=== PATIENT | male | born 1950 | race Caucasian/White ===

== ENCOUNTER 2024-07-25 11:25 | Outpatient (REF) | payer MEDICARE, BC, SELFPAY ==
--- NOTE | 2024-07-25 11:00 | PAPNONF_PTH ---
PATIENT: Trey aC LOC: [facility] U#:[id number] AGE/SX: 74/M ROOM: RE07/25/[address]: Tao Morton MD : 1950 BED: DIS: 07/25/2024 SPEC #: [id number] RECD: 07/25/24 18:23 STATUS: ALONZO REQ #: [id number] ANGELIQUE: 07/25/24 11:[address]: Tao Morton DEPT: [facility] Cytology RECD BY: Alondra Clifton ENTERED: 07/25/24 18:25 SP TYPE: GREG DESIR DR: Jean Claude Balderas Tissues: 1 - BODY FLUID CYTO(NOT S/U/N/EM)[facility] Procedures: BODY FLUID CYTO(NOT SPU/UR/NIP/ENDOM)[facility] Comments: [id number] (REFRIGERATED)
== END 2024-07-25 11:26 | disposition home or self-care (01) ==
LOC: LBN 11:25
PROVIDERS: PCP Family Medicine; Visit Provider Otolaryngology
DX: R22.0 Localized swelling, mass and lump, head (principal); G51.0 Bell's palsy; D86.9 Sarcoidosis, unspecified; H61.23 Impacted cerumen, bilateral; H90.2 Conductive hearing loss, unspecified; J31.0 Chronic rhinitis
CPT/HCPCS: 88104

== ENCOUNTER 2024-09-03 01:33 | Outpatient (CLI) | payer MEDICARE, BC, SELFPAY ==
--- NOTE | 2024-09-03 07:30 | DI.MRI_ITS ---
Exam(s) MR BRAIN ORBIT FACE NECK WO/W EXAM: MR BRAIN ORBIT FACE NECK WO/W CLINICAL HISTORY: left lower facial paralysis,cheek mass,sarcoidosis,g51.0 TECHNIQUE: Multiplanar multisequence MRI of the brain was performed. CONTRAST MATERIAL: IV Contrast: 15 mL of Dotarem contrast administered. COMPARISON: No exams were available for comparison FINDINGS: The examination is limited due to patient motion artifact. VENTRICLES AND EXTRA AXIAL SPACES: Normal in size and morphology for the patient's age. HEMORRHAGE: None. CEREBRAL PARENCHYMA: No focus of restricted diffusion to suggest acute infarct. No space-occupying le papo identified. There are areas of hyperintense signal seen in the white matter on the FLAIR and T2 weighted images most consistent with chronic microvascular ischemic disease. MIDLINE SHIFT: None. BRAINSTEM/CEREBELLUM: Normal. CALVARIUM: Normal. ENHANCEMENT: No suspicious enhancement identified. VISUALIZED PARANASAL SINUSES/MASTOIDS: There is mucosal thickening in the maxillary sinuses bilateral ly. No air-fluid levels are present. There is a small mucous retention cyst or polyp in the right s phenoid sinus. AMBLER OF BUCK: Normal flow void. PITUITARY GLAND: Unremarkable. OTHER FINDINGS: Orbits and orbital soft tissues: Within normal limits. Visualized paranasal sinuses: There is mild mucosal thickening seen in the maxillary sinuses and eth moid air cells bilaterally. There is a small fluid level in the right sphenoid sinus. Nasopharynx: Within normal limits. Oropharynx: Within normal limits. Hypopharynx: Within normal limits. Retropharyngeal space: Within normal limits. Parotids/submandibular: Within normal limits. Lymphadenopathy: There is scattered lymph nodes seen along the level one to level three all measuring less than 8 mm in short axis diameter which are physiologic in nature. Bones: Within normal limits for the patient's age. Carotids/Jugular: Within normal limits. Soft tissues: There is a soft tissue mass measuring 2.1 x 1.4 cm in the subcutaneous tissues of the left cheek anterior to the masseter muscle. It does not involve the underlying muscle. It is isointen se to muscle on the T1 weighted images, hyperintense on the T2 weighted images and shows heterogeneou s enhancement following contrast administration. The mass does not impinge upon the left infraorbital foramen. No other enhancing soft tissue masses are appreciated. IMPRESSION: 1. No evidence of an intracranial mass or metastatic disease. 2. Age-related cerebral atrophy and chronic microvascular ischemic disease. 3. 2.1 x 1.4 cm enhancing mass in the subcutaneous tissues of the left cheek. This may represent an i nfectious or inflammatory nodule. Primary or metastatic nodule should also be considered. Neuroma selvin uld be considered. 4. No evidence of adenopathy. DATA REPOSITORY:
[2024-09-03] MEDS: Normal Saline Flush 10 ML SYR IVP (09:42)
[2024-09-03] MEDS: Gadoterate meglumine 20 ML SYRINGE 15 ML IVP (09:43)
== END 2024-09-03 01:53 ==
LOC: DI 01:33
PROVIDERS: PCP Family Medicine; Visit Provider Otolaryngology
DX: G51.0 Bell's palsy (principal); I67.82 Cerebral ischemia
CPT/HCPCS: 70553; 70543

== ENCOUNTER 2024-10-10 12:04 | Outpatient (REF) | payer MEDICARE, SELFPAY ==
--- NOTE | 2024-10-10 08:10 | PAPNONF_PTH ---
PATIENT: Trey Ca LOC: [facility] U#:[id number] AGE/SX: 74/M ROOM: RE10/10/[address]: Tao Morton MD : 1950 BED: DIS: 10/10/2024 SPEC #: [id number] RECD: 10/10/24 13:02 STATUS: ALONZO RELuisa #: [id number] ANGELIQUE: 10/10/24 08:[address]: Tao Morton DEPT: [facility] Cytology RECD BY: Alondra Clifton ENTERED: 10/10/24 13:03 SP TYPE: GREG DESIR DR: Jean Claude Balderas Tissues: 1 - BODY FLUID CYTO-FINE NEEDLE ASPIRATE-[facility] Procedures: BODY FLUID CYTO-FINE NEEDLE ASPIRATE-[facility] Comments: [id number] (SUBMITTED IN 30 mL CYTOLYT) (REFRIGERATED)
== END 2024-10-10 12:05 | disposition home or self-care (01) ==
LOC: LBN 12:04
PROVIDERS: PCP Family Medicine; Visit Provider Otolaryngology
DX: R22.0 Localized swelling, mass and lump, head (principal)
CPT/HCPCS: 88104

== ENCOUNTER 2025-06-03 16:27 | Outpatient (CLI) | payer MEDICARE, SELFPAY ==
[2025-06-03 16:16] LABS: Abs Immature Grans 0.01 10^3/uL (0.0-0.06); HCT 38.8 % (40.0-50.0); HGB 12.9 g/dL (13.5-17.5); Immature Grans % 0.2 %; MCH 31.7 pg (27.0-33.0); MCHC 33.2 % (32.0-36.0); MCV 95 fL (80-95); MPV 10.1 fL (8.0-11.0); Platelet Count 251 10^3/uL (130-400); RBC 4.07 10^6/uL (4.36-5.78); RDW 13.2 % (11.8-14.1); RDW-SD 46.5 fL; WBC 6.08 10^3/uL (4.4-10.8)
[2025-06-03 16:57] LABS: ALT 39 U/L (16-63); AST 28 U/L (15-37); Albumin 4.4 g/dL (3.4-5.0); Alkaline Phosphatase 93 U/L (46-116); Anion Gap 6.0 mmol/L (3-11); BUN 24 mg/dL (7-18); Bilirubin, Total 0.6 mg/dL (0.2-1.0); CO2 33.0 mmol/L (21.0-32.0); Calcium 9.9 mg/dL (8.5-10.1); Chloride 98 mmol/L (98-107); Estimated GFR 91.72 (mL/min/1.73m2); Glucose 160 mg/dL (74-106); Potassium 4.3 mmol/L (3.5-5.1); Sodium 137 mmol/L (136-145); TSH 1.96 uIU/mL (0.36-3.74); Total Protein 8.1 g/dL (6.4-8.2)
== END 2025-06-03 16:28 | disposition home or self-care (01) ==
LOC: LBO 16:31
PROVIDERS: PCP Family Medicine; Visit Provider Internal Medicine Hematology
DX: C44.320 Squamous cell carcinoma of skin of unspecified parts of face (principal)
CPT/HCPCS: 36415; 80053; 84439; 84443; 85025

== ENCOUNTER 2025-07-08 17:53 | Outpatient (CLI) | payer MEDICARE, SELFPAY ==
[2025-07-08 13:16] LABS: Abs Immature Grans 0.02 10^3/uL (0.0-0.06); HCT 38.0 % (40.0-50.0); HGB 12.8 g/dL (13.5-17.5); Immature Grans % 0.4 %; MCH 31.4 pg (27.0-33.0); MCHC 33.7 % (32.0-36.0); MCV 93 fL (80-95); MPV 9.3 fL (8.0-11.0); Platelet Count 210 10^3/uL (130-400); RBC 4.07 10^6/uL (4.36-5.78); RDW 11.9 % (11.8-14.1); RDW-SD 41.3 fL; WBC 4.60 10^3/uL (4.4-10.8)
[2025-07-08 13:49] LABS: ALT 47 U/L (16-63); AST 25 U/L (15-37); Albumin 4.3 g/dL (3.4-5.0); Alkaline Phosphatase 89 U/L (46-116); Anion Gap 4.9 mmol/L (3-11); BUN 18 mg/dL (7-18); Bilirubin, Total 0.4 mg/dL (0.2-1.0); CO2 33.1 mmol/L (21.0-32.0); Calcium 9.4 mg/dL (8.5-10.1); Chloride 100 mmol/L (98-107); Estimated GFR 91.72 (mL/min/1.73m2); Glucose 176 mg/dL (74-106); Potassium 4.2 mmol/L (3.5-5.1); Sodium 138 mmol/L (136-145); TSH 2.17 uIU/mL (0.36-3.74); Total Protein 7.7 g/dL (6.4-8.2)
== END 2025-07-08 17:54 | disposition home or self-care (01) ==
LOC: LBO 17:53
PROVIDERS: PCP Family Medicine; Visit Provider Internal Medicine Hematology
DX: C44.320 Squamous cell carcinoma of skin of unspecified parts of face (principal)
CPT/HCPCS: 36415; 80053; 84439; 84443; 85025

== ENCOUNTER 2025-07-29 04:19 | Outpatient (CLI) | payer MEDICARE, SELFPAY ==
[2025-07-29 12:17] LABS: Abs Immature Grans 0.01 10^3/uL (0.0-0.06); HCT 41.1 % (40.0-50.0); HGB 13.4 g/dL (13.5-17.5); Immature Grans % 0.2 %; MCH 30.7 pg (27.0-33.0); MCHC 32.6 % (32.0-36.0); MCV 94 fL (80-95); MPV 9.9 fL (8.0-11.0); Platelet Count 208 10^3/uL (130-400); RBC 4.37 10^6/uL (4.36-5.78); RDW 12.1 % (11.8-14.1); RDW-SD 41.9 fL; WBC 4.31 10^3/uL (4.4-10.8)
[2025-07-29 12:39] LABS: ALT 37 U/L (16-63); AST 21 U/L (15-37); Albumin 4.4 g/dL (3.4-5.0); Alkaline Phosphatase 98 U/L (46-116); Anion Gap 4.2 mmol/L (3-11); BUN 18 mg/dL (7-18); Bilirubin, Total 0.5 mg/dL (0.2-1.0); CO2 33.8 mmol/L (21.0-32.0); Calcium 9.7 mg/dL (8.5-10.1); Chloride 101 mmol/L (98-107); Estimated GFR 91.72 (mL/min/1.73m2); Glucose 179 mg/dL (74-106); Potassium 4.4 mmol/L (3.5-5.1); Sodium 139 mmol/L (136-145); TSH 1.71 uIU/mL (0.36-3.74); Total Protein 8.0 g/dL (6.4-8.2)
== END 2025-07-29 04:20 | disposition home or self-care (01) ==
LOC: LBO 04:19
PROVIDERS: PCP Family Medicine; Visit Provider Internal Medicine Hematology
DX: C44.320 Squamous cell carcinoma of skin of unspecified parts of face (principal)
CPT/HCPCS: 36415; 80053; 84439; 84443; 85025

== ENCOUNTER 2025-08-19 03:38 | Outpatient (CLI) | payer MEDICARE, SELFPAY ==
[2025-08-19 12:02] LABS: Abs Immature Grans 0.01 10^3/uL (0.0-0.06); HCT 37.9 % (40.0-50.0); HGB 12.5 g/dL (13.5-17.5); Immature Grans % 0.2 %; MCH 30.4 pg (27.0-33.0); MCHC 33.0 % (32.0-36.0); MCV 92 fL (80-95); MPV 9.5 fL (8.0-11.0); Platelet Count 187 10^3/uL (130-400); RBC 4.11 10^6/uL (4.36-5.78); RDW 12.4 % (11.8-14.1); RDW-SD 41.8 fL; WBC 4.65 10^3/uL (4.4-10.8)
[2025-08-19 12:29] LABS: ALT 32 U/L (16-63); AST 23 U/L (15-37); Albumin 4.2 g/dL (3.4-5.0); Alkaline Phosphatase 88 U/L (46-116); Anion Gap 8.3 mmol/L (3-11); BUN 22 mg/dL (7-18); Bilirubin, Total 0.5 mg/dL (0.2-1.0); CO2 31.7 mmol/L (21.0-32.0); Calcium 9.4 mg/dL (8.5-10.1); Chloride 102 mmol/L (98-107); Estimated GFR 91.72 (mL/min/1.73m2); Glucose 124 mg/dL (74-106); Potassium 4.4 mmol/L (3.5-5.1); Sodium 142 mmol/L (136-145); TSH 1.84 uIU/mL (0.36-3.74); Total Protein 7.8 g/dL (6.4-8.2)
== END 2025-08-19 03:39 | disposition home or self-care (01) ==
LOC: LBO 03:38
PROVIDERS: PCP Family Medicine; Visit Provider Internal Medicine Hematology
DX: C44.320 Squamous cell carcinoma of skin of unspecified parts of face (principal)
CPT/HCPCS: 36415; 80053; 84439; 84443; 85025

== ENCOUNTER 2025-09-09 03:28 | Outpatient (CLI) | payer MEDICARE, SELFPAY ==
[2025-09-09 14:20] LABS: Abs Immature Grans 0.00 10^3/uL (0.0-0.06); HCT 36.6 % (40.0-50.0); HGB 12.1 g/dL (13.5-17.5); Immature Grans % 0.0 %; MCH 30.5 pg (27.0-33.0); MCHC 33.1 % (32.0-36.0); MCV 92 fL (80-95); MPV 10.0 fL (8.0-11.0); Platelet Count 188 10^3/uL (130-400); RBC 3.97 10^6/uL (4.36-5.78); RDW 12.9 % (11.8-14.1); RDW-SD 43.5 fL; WBC 3.44 10^3/uL (4.4-10.8)
[2025-09-09 14:47] LABS: ALT 34 U/L (16-63); AST 22 U/L (15-37); Albumin 4.2 g/dL (3.4-5.0); Alkaline Phosphatase 80 U/L (46-116); Anion Gap 6.8 mmol/L (3-11); BUN 23 mg/dL (7-18); Bilirubin, Total 0.4 mg/dL (0.2-1.0); CO2 33.2 mmol/L (21.0-32.0); Calcium 9.0 mg/dL (8.5-10.1); Chloride 100 mmol/L (98-107); Glucose 204 mg/dL (74-106); Potassium 4.3 mmol/L (3.5-5.1); Sodium 140 mmol/L (136-145); TSH 1.99 uIU/mL (0.36-3.74); Total Protein 7.6 g/dL (6.4-8.2)
== END 2025-09-09 03:29 | disposition home or self-care (01) ==
LOC: LBO 03:28
PROVIDERS: PCP Family Medicine; Visit Provider Internal Medicine Hematology
DX: C44.320 Squamous cell carcinoma of skin of unspecified parts of face (principal)
CPT/HCPCS: 36415; 80053; 84439; 84443; 85025

== ENCOUNTER 2025-09-30 04:19 | Outpatient (CLI) | payer MEDICARE, SELFPAY ==
[2025-09-30 12:19] LABS: Abs Immature Grans 0.01 10^3/uL (0.0-0.06); HCT 38.2 % (40.0-50.0); HGB 12.7 g/dL (13.5-17.5); Immature Grans % 0.2 %; MCH 30.9 pg (27.0-33.0); MCHC 33.2 % (32.0-36.0); MCV 93 fL (80-95); MPV 9.9 fL (8.0-11.0); Platelet Count 201 10^3/uL (130-400); RBC 4.11 10^6/uL (4.36-5.78); RDW 12.8 % (11.8-14.1); RDW-SD 44.0 fL; WBC 4.15 10^3/uL (4.4-10.8)
[2025-09-30 12:38] LABS: ALT 40 U/L (10-49); AST 34 U/L (<34); Albumin 4.6 g/dL (3.2-5.0); Alkaline Phosphatase 79 U/L (46-116); Anion Gap 5.6 mmol/L (3-11); BUN 20 mg/dL (9-23); Bilirubin, Total 0.40 mg/dL (0.2-1.2); CO2 32.4 mmol/L (20.0-31.0); Calcium 9.7 mg/dL (8.3-10.6); Chloride 103 mmol/L (98-107); Glucose 159 mg/dL (74-106); Potassium 4.5 mmol/L (3.5-5.1); Sodium 141 mmol/L (136-145); Total Protein 7.5 g/dL (5.7-8.2)
[2025-09-30 12:42] LABS: TSH 1.57 uIU/mL (0.55-4.78)
== END 2025-09-30 04:20 | disposition home or self-care (01) ==
LOC: LBO 04:19
PROVIDERS: PCP Family Medicine; Visit Provider Internal Medicine Hematology
DX: C44.320 Squamous cell carcinoma of skin of unspecified parts of face (principal)
CPT/HCPCS: 36415; 80053; 84439; 84443; 85025

== ENCOUNTER → 2025-10-04 00:14 | Outpatient (CLI) | payer MEDICARE, SELFPAY ==
--- NOTE | 2025-10-04 | DI.MRI_ITS ---
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 IV contrast: 12 mL Dotarem COMPARISON: MR MR BRAIN ORBIT FACE NECK WO/W from 09/03/2024 MR MR HEAD AND NECK WO AND W CONTRAST from 05/13/2025 CT,PT NM PET TUMOR LOC SKULL BASE TO MID THIGH from 05/14/2025 FINDINGS: SOFT TISSUES: Compared to the MRI scan of 05/13/2025 there has been interval resection of the previously described large soft tissue mass in the left temporal fossa which was noted to extend into the left infratemporal fossa and left supplemental manager space. On the present study the large left temporal fossa component has been largely resected. There is enhancing soft tissue filling the left infratemporal fossa medial to the left zygomatic arch and extending to the anterior aspect of the left temporomandibular joint. There is also extension of enhancement into the anterolateral aspect of the supplemental manager space and the enhancement is noted to e xtend along the medial and lateral aspects of the ascending ramus of the left mandible. The area of soft tissue enhancement measures approximately 7 cm AP x 1.5 cm transverse dimension by 8 cm craniocaudal dimension. There is no invasion of the ipsilateral mandible. The left orbit again exhibits proptosis but there is no intraconal mass evident at this time. There is no abnormal deviation of the lateral rectus muscle in the left orbital cavity. There is also no evidence of intracranial extension. OTHER: There is a peripherally enhancing cystic structure in the anteromedial aspect of the right orbit measuring approximately 13 x 10 mm and possibly representing a dermoid cyst. This was previously present and did not exhibit F DG avidity on the PET-CT scan of May 14, 2025. It was also evident on MRI scan of 09/03/2024 and has not increased in size since that time There is mucosal thickening in the paranasal sinuses without associated fluid levels and there is redemonstration of left mastoid effusion. Right mastoid air cells are unremarkable/normally aerated. There are fluid intensity structures in the nasopharynx consistent with probable benign retention cysts, similar to the previous study. Parotid and submandibular salivary glands appear unremarkable. There is no obvious lymphadenopathy. IMPRESSION: 1. There has been interval resection of the large left facial mass. The left temporal fossa component has been resected. There is residual enhancing soft tissue in the left infratemporal fossa medial to the left zygomatic arch, and the left supplemental manager space and around the ascending ramus of the left side of the mandible. This enhancing tissue either represents residual neoplastic tissue , enhancing postsurgical changes, or a combination of both. There does not appear to be intracranial extension into the ipsilateral middle cranial fossa nor obvious extension into the lateral aspect of the orbit, despite the ipsilateral proptosis evident. 2. There is lipomatosis tissue in the left cheek lateral to the left side of the body of the mandible inferior to the resection level which is probably a graft/flap. 3. There is a cystic structure in the anteromedial aspect of the opposite-right orbit measuring 1.3 cm AP by 1 cm wide. This is unchanged in size from MRI scan of August 2024 and was not FDG avid on the PET-CT scan performed in April 2025. Therefore is most probably a benign lesion. However, it is unlikely to represent a typical dermoid cyst as it is T1 hypointense (dermoids are typically T1 hyperintense due to fat content) . Other possibilities would include possible mucocele related to the adjacent frontoethmoidal recess, a rare ectopic lacrimal ductal cyst or lymphatic malformation. DATA REPOSITORY:
--- NOTE | 2025-10-04 | DI.MRI_ITS ---
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 Both noninfused and contrast infused sequences were performed. IV Contrast injected was 12 cc Dotarem. COMPARISON: MR MR BRAIN ORBIT FACE NECK WO/W from 09/03/2024 FINDINGS: Please refer to facial MRI scan also performed today which details the significant extracranial findings. CEREBRAL PARENCHYMA: No evidence of intracranial hemorrhage, mass effect nor shift of midline structure. No extraaxial fluid collections. Ventricles are not enlarged nor shifted. There is no significant focal signal abnormality in the cerebellar hemispheres nor within the mann, midbrain, and thalami. There are few small nonspecific FLAIR bright foci of signal abnormality in the [place] in supra ventricular white matter, not associated with hemorrhage, surrounding edema, enhancement, nor restricted diffusion. Probably related to chronic small vessel disease. There is no evidence of acute ischemic int racranial event. There are no ring enhancing lesions in the brain. There is no abnormal meningeal enhancement. There is no evidence of intracranial extension of the infratemporal fossa findings better described on the facial MRI study. There is no abnormal enhancement in the left middle cranial fossa, both intra nor extra- axial. PITUITARY GLAND: No mass nor parasellar abnormality. No obvious abnormality in the cavernous sinuses. FLOW VOIDS: The expected flow void are noted. No evidence of obvious aneurysm nor obvious vascular malformation. PARANASAL SINUSES: There is circumferential mucosal thickening in both maxillary sinuses, not associated with fluid levels. Some mucosal thickening also evident in the frontal sinuses and mild mucosal disease noted in the thumb oil air cells. There is unilateral left mastoid effusion again evident. ORBITS: There is a well-defined T1 hypointense T2 hyperintense mildly lobulated cystic-appearing lesion in the anteromedial aspect of the right orbit which measures approximately 11 mm AP by 8 mm wide by 15 mm craniocaudal. It does not exhibit internal enhancement. It is adjacent to the right frontoethmoidal recess. Despite this finding and the proptosis in the opposite-left eye there does not appear to be obvious dysconjugate gaze. IMPRESSION: 1. No evidence of intracranial extension of the left-sided facial findings which are described on the facial MRI scan performed same date. 2. No abnormal enhancing intracranial findings. There are no ring enhancing lesions in the brain and there is no abnormal meningeal enhancement. 3. There is a well-defined benign-appearing 11 x 8 x 15 mm cystic appearing lesion in the anteromedial aspect of the right orbit, not exhibiting internal enhancement and unchanged from prior MRI scan of 09/03/2024. this was also not FDG avid on the PET-CT scan performed 05/14/2025. Etiologic possibilities are a mucocele (given its location adjacent to the right frontoethmoidal recess), an atypical appearing dermoid or epidermoid cyst (which are often internally T1 hyperintense due to fat content; this lesion is T1 hypointense), a rare ectopic lacrimal duct cyst (dacryops, and more commonly located laterally near the lacrimal gland), or even a rare parasitic such as hydatid cyst). DATA REPOSITORY:
[2025-10-04] MEDS: Normal Saline Flush 10 ML SYR IVP (12:08)
[2025-10-04] MEDS: Gadoterate meglumine 20 ML SYRINGE IJ (12:09)
--- NOTE | 2025-10-04 14:31 | DI.VRAD_ITS ---
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 Contrast material: DOTAREM; Contrast volume: 12 ml; Contrast route: INTRAVENOUS (IV); COMPARISON: MR HEAD AND NECK WO AND W CONTRAST 05/13/2025 7:39 PM FINDINGS: Brain: The visualized brain parenchyma is unremarkable. The visualized segments of the intracranial ICAs and vertebrobasilar arteries demonstrate flow voids consistent with patency without significant stenosis. Paranasal sinuses: There is mild mucoperiosteal thickening in the paranasal sinuses without air-fluid levels. Mastoid air cells: Redemonstration of LEFT mastoid effusion. RIGHT tympanomastoid air cells normally aerated. Orbital cavities: There is a peripherally enhancing cystic structure in the anteromedial aspect of the RIGHT orbit, measuring 1.5 cm in maximal dimension. (series 74821, image 29 and series 31864 image 29) this has a benign appearance and may represent a dermoid cyst. The orbits are otherwise unremarkable. Nasopharynx: Peripherally enhancing fluid intensity structures in the nasopharynx consistent with retention cysts, similar to previous exam. Pharynx: Unremarkable. Larynx: Visualized larynx is unremarkable. Salivary glands: Visualized submandibular and parotid glands are unremarkable. Lymph nodes: No lymphadenopathy. Soft tissues: There is lipomatous tissue more inferiorly in the LEFT cheek lateral to the body of the LEFT mandible which may reflect a graft/flap. This is similar to the previous exam. Bones/joints: Since the previous examination there has been resection of a large heterogeneously enhancing soft tissue mass in the LEFT temporal fossa extending into the LEFT infratemporal fossa and jig mill operator space. On the current examination the temporal fossa component has been largely resected. There is enhancing soft tissue filling the LEFT infratemporal fossa, medial to the LEFT zygomatic arch and extending to the anterior aspect of the LEFT temporomandibular joint. There is also extension into the anterolateral aspect of the jig mill operator space. The enhancement extends along the medial and lateral aspects of the ascending ramus of the LEFT mandible. The area of soft tissue enhancement measures 7 cm in AP dimension by 1.5 cm in transverse dimension by 8 cm in craniocaudal dimension. (coronal post gadolinium fat suppressed T1 weighted image 16, series 30047; axial post gadolinium fat suppressed T1 weighted images 25-28, series 10914). There is no definitive extension into the mandible, the LEFT orbit or intracranially. The visualized cervical spinal cord is unremarkable. Degenerative changes in the upper cervical spine. IMPRESSION: 1. Status post resection of large LEFT facial mass. There is residual enhancing soft tissue in the LEFT infratemporal fossa, medial to the LEFT zygomatic arch, in the LEFT jig mill operator space, and around the LEFT mandible ascending ramus. This may represent residual neoplasm versus postsurgical changes. 2. Lipomatous tissue in the LEFT cheek inferior to the resection site consistent with a graft/flap. 3. Additional stable incidental/nonemergent findings as discussed above. Dictated and Authenticated by: Pili Decker MD. Orderin Sebastian Menard MD
== END ==
LOC: DI 00:16
PROVIDERS: PCP Family Medicine; Visit Provider Internal Medicine Hematology
DX: C44.320 Squamous cell carcinoma of skin of unspecified parts of face (principal)
CPT/HCPCS: 70553; 70543